=== PATIENT | male | born 1950 | race Caucasian/White ===

== ENCOUNTER 2024-02-01 17:46 | Emergency (ER) | payer BC, OTHER ==
[~2024-02-01] VITALS: Ht 182.9 cm; Wt 98.9 kg
[2024-02-01] MEDS ORDERED: TETANUS-DIPTH-ACEL PERTUSSIS 0.5ML SYR Tdap IM ONE (20:15)
[2024-02-01] MEDS: HYDROcodone-ACET 5/325MG TAB PO ONE (20:38)
[2024-02-02] MEDS: cefTRIAXone SOD 1,000 MG VL IM ONE (00:22)
[2024-02-02 00:30] VITALS: BP 140/76; PULSE 98; RESP 18; TEMP 98; O2SAT 97
[2024-02-02] MEDS ORDERED: AUG875T PO (00:34)
[2024-02-02] MEDS: HYDROcodone-ACET 5/325MG TAB PO ONE (00:46)
== END 2024-02-02 00:48 | disposition home or self-care (01) ==
LOC: ER 17:46
DX: S91.012A Laceration without foreign body, left ankle, initial encounter (principal); W54.0XXA Bitten by dog, initial encounter; Y93.89 Activity, other specified; Y92.89 Other specified places as the place of occurrence of the external cause; Y99.8 Other external cause status
CPT/HCPCS: 12004; 73610; 96372; 99283; J0696; 90471